=== PATIENT | male | born 1995 | race Two or more races ===

== ENCOUNTER 2020-10-29 22:23 | Emergency (ER) | payer OTHER, MEDICAID, SELFPAY ==
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
[2020-10-29 22:30] VITALS: BP 131/74; PULSE 63; RESP 16; TEMP 37.1; O2SAT 98; BMI 19.9
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
[2020-10-29] MEDS: Cyclobenzaprine HCl 10 MG TABLET PO (23:23)
[2020-10-29] MEDS: Ibuprofen 600 MG TABLET PO (23:23)
== END 2020-10-30 00:29 | disposition home or self-care (01) ==
PROVIDERS: Emergency Provider Emergency Medicine
DX: Z04.1 Encounter for examination and observation following transport accident (principal); M54.6 Pain in thoracic spine
CPT/HCPCS: 72070; 99283; 99284